=== PATIENT | male | born 1975 | race Caucasian/White ===

== ENCOUNTER 2021-04-23 18:44 | Emergency (ER) | payer SELFPAY ==
[~2021-04-23] VITALS: Ht 167.6 cm; Wt 91.6 kg
--- NOTE | 2021-04-23 19:46 | NUR ---
A&O X2 M BIB SELF REPORTING LEFT KNEE PAIN AND SWELLING THAT STARTED THIS MORNING. RTAED PAIN 9/10 PAIN EXACERBATED WITH AMBULATION AND RELIEVED WITH REST. NOTED SWELLING AND NO REDNESS OR OPEN WOUNDS. REPORTED HAVING SIMILIAR SWELLING X2 YEARS PRIOR THAT WAS RELIEVED WITH 30 DAY COURSE OF ALLOPURINOL. MD AT BEDSIDE FOR EVAL AWAITING ORDERS.
[2021-04-23] MEDS ORDERED: IBUP-1957 PO (20:15)
[2021-04-23] MEDS ORDERED: CYCL5TAB PO (20:15)
[2021-04-23] MEDS ORDERED: KETOROLAC TROMETHAMINE INJ 30 MG/ML VIAL ONE (20:42)
[2021-04-23] MEDS ORDERED: CYCLOBENZAPRINE 10 MG TABLET ONE (20:42)
[2021-04-23] MEDS: CYCLOBENZAPRINE 10 MG TABLET PO ONE (20:55)
[2021-04-23] MEDS: KETOROLAC TROMETHAMINE INJ 30 MG/ML VIAL IM ONE (20:55)
--- NOTE | 2021-04-23 21:02 | NUR ---
Patient discharged to home in stable condition. Rx and Written and verbal after care instructions given. Patient verbalizes understanding of instruction.
[2021-04-23 21:31] VITALS: BP 130/71
== END 2021-04-23 21:31 | disposition home or self-care (01) ==
LOC: ER 18:48
DX: M25.562 Pain in left knee (principal); M54.5 Low back pain; M25.462 Effusion, left knee; Z79.899 Other long term (current) drug therapy
CPT/HCPCS: 96372; 99283; J1885